=== PATIENT | male | born 1980 | race Caucasian/White ===

== ENCOUNTER 2020-04-04 13:56 | Emergency (ER) | payer OTHER, SELFPAY ==
--- NOTE | 2020-04-04 14:00 | PC.NURSE ---
1358- code called by erp. cpr stopped.
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
--- NOTE | 2020-04-04 15:10 | PC.NURSE ---
english tutor here to evaluate.
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
== END 2020-04-04 17:38 | disposition expired ==
PROVIDERS: Emergency Provider Emergency Medicine
DX: I46.8 Cardiac arrest due to other underlying condition; V13.4XXA Pedal cycle driver injured in collision with car, pick-up truck or van in traffic accident, initial encounter
CPT/HCPCS: 92950; 99285